=== PATIENT | male | born 1960 | race Caucasian/White ===

== ENCOUNTER 2017-06-28 02:39 | Emergency (ER) | payer BC, OTHER ==
[~2017-06-28] VITALS: Ht 190.5 cm; Wt 81.7 kg
[2017-06-28] MEDS ORDERED: PROSCAR 5MG TABL5 MG PO (02:47)
[2017-06-28] MEDS ORDERED: PRAVACHOL20 MG PO (02:47)
[2017-06-28 03:49] LABS: ABSOLUTE NEUTROPHILS 5.5 thou/uL (1.4-8.2); BASOPHILS 0.2 % (0.0-2.0); EOSINOPHILS 1.1 % (0.0-3.0); HEMATOCRIT 43.8 % (42.0-52.0); HEMOGLOBIN 14.7 gm/dL (14.0-18.0); LYMPHOCYTES 37.5 % (24.0-44.0); MCH 29.6 pg (26.0-34.0); MCHC 33.6 g/dL (28.0-37.0); MCV 88.1 fL (80.0-100.0); MONOCYTES 7.1 % (1.0-8.0); PLATELET COUNT 207 thou/uL (150-400); POLYS 54.1 % (36.0-66.0); RBC 4.97 mil/uL (4.50-6.00); RDW 12.8 % (10.5-14.5); WBC 10.1 thou/uL (4.0-11.0)
[2017-06-28 03:52] LABS: ANION GAP 8 mmol/L (7-16); BUN 28 mg/dL (7-18); CALCIUM 9.5 mg/dL (8.5-10.1); CHLORIDE 104 mmol/L (98-107); CO2 29 mmol/L (21-32); CREATININE 1.2 mg/dL (0.7-1.3); GLUCOSE 159 mg/dL (74-106); POTASSIUM 3.9 mmol/L (3.5-5.1); SODIUM 141 mmol/L (136-145)
[2017-06-28 03:58] LABS: ALBUMIN 3.8 g/dL (3.4-5.0); DIRECT BILIRUBIN < 0.1 mg/dL (<0.1-0.3); LIPASE 99 U/L (73-393); SGOT 27 U/L (15-37); SGPT 33 U/L (30-65); TOTAL BILIRUBIN 0.4 mg/dL (<0.1-1.0); TOTAL PROTEIN 7.4 g/dL (6.4-8.2)
[2017-06-28 06:09] LABS: URINE BILIRUBIN NEGATIVE (Negative); URINE BLOOD TRACE (Negative); URINE CLARITY CLEAR; URINE COLOR YELLOW; URINE GLUCOSE-RANDOM* NEGATIVE (Negative); URINE KETONES TRACE (Negative); URINE LEUKOCYTES-REFLEX NEGATIVE (Negative); URINE NITRITE-REFLEX NEGATIVE (Negative); URINE PROTEIN (DIPSTICK) NEGATIVE (Negative); URINE UROBILINOGEN 0.2 E.U./dl (0.2-1.0)
[2017-06-28] MEDS ORDERED: NORCO 5-325 TA1 EACH PO (06:19)
[2017-06-28] MEDS ORDERED: ZOFRAN ODT4 MG PO (06:19)
[2017-06-28] MEDS ORDERED: FLOMAX0.4 MG PO (06:19)
[2017-06-28 07:33] VITALS: BP 146/84
== END 2017-06-28 07:53 | disposition home or self-care (01) ==
LOC: ER 02:39
PROVIDERS: Emergency Medicine
DX: N20.1 Calculus of ureter (principal)

== ENCOUNTER → 2017-10-09 | Outpatient (CLI) | payer BC, OTHER ==
[~2017-10-09] MED LIST: FLOMAX0.4 MG PO; NORCO 5-325 TA1 EACH PO; PRAVACHOL20 MG PO; PROSCAR 5MG TABL5 MG PO; ZOFRAN ODT4 MG PO
--- NOTE | ~2017-10-09 | 2DMMODE ---
[facility] [address] [place] [address] 2 D/M-MODE ECHOCARDIOGRAM Name: BRENT JETER Room #: REG [facility]#: [id number] Admission: 10/09/17 Attend Phys: Christopher Gonzalez MD Discharge: Date of : 64 Date of Service: 10/09/17 1543 Report #: [id number] THIS REPORT FOR: //name// APPROVED REPORT Study performed: 10/09/2017 15:06:59 EXAM: Comprehensive 2D, Doppler, and color-flow Echocardiogram Patient Location: Out-Patient Room #: Echo lab 2 Status: routine BSA: 2.10 HR: 52 bpm BP: 128/78 mmHg Other Information Study Quality: Good Indications CAD HLP 2D Dimensions RVDd: 35.46 mm LVEF(%): 60.62 (>50%) IVSd: 10.73 (7-11mm) LVOT Diam: 22.53 (18-24mm) LVDd: 46.84 mm PWd: 9.63 (7-11mm) Ascending Ao: 31.19 (22-36mm) LVDs: 31.69 (25-40mm) Aortic Root: 33.68 mm IVC: 17.00 mm Arevalo's LVEF: 60.62 % Volumes Left Atrial Volume (Systole) Single Plane 4CH: 30.00 mL Single Plane 2CH: 40.36 mL LA ESV Index: 19.00 mL/m2 Aortic Valve AoV Peak Asael.: 1.35 m/s AO Peak Gr.: 7.25 mmHg LVOT Max P.94 mmHg LVOT Max V: 1.22 m/s KAREL Vmax: 3.61 cm2 Mitral Valve E/A Ratio: 1.4 MV Decel. Time: 315.14 ms [facility] [employer] [place] [address] 2 D/M-MODE ECHOCARDIOGRAM Name: BRENT JETER Room #: REG [facility].#: [id number] Admission: 10/09/17 Attend Phys: Christopher Gonzalez MD Discharge: Date of : 64 Date of Service: 10/09/17 1543 Report #: [id number] MV E Max Asael.: 0.58 m/s MV A Asael.: 0.41 m/s MV PHT: 91.39 ms IVRT: 83.04 ms Pulmonary Valve PV Peak Asael.: 0.94 m/s PV Peak Gr.: 3.53 mmHg Pulmonary Vein P Vein S: 0.70 m/s P Vein A: 0.33 m/s P Vein D: 0.50 m/s P Vein A Dur.: 92.3 msec P Vein S/D Ratio: 1.40 Tricuspid Valve TR Peak Asael.: 2.30 m/s TR Peak Gr.: 21.13 mmHg PA Pressure: 26.00 mmHg Left Ventricle The left ventricle is normal size. There is normal left ventricular wall thickness. The left ventricular systolic function is normal. The left ventricular ejection fraction is within the normal range. LVEF is 55-60%. The left ventricular diastolic function is normal. Right Ventricle The right ventricle is normal size. The right ventricular systolic function is normal. Atria The left atrium size is normal. The right atrium size is normal. Aortic Valve The aortic valve is normal in structure. No aortic regurgitation is present. There is no aortic valvular stenosis. Mitral Valve The mitral valve is normal in structure. Trace mitral regurgitation. No evidence of mitral valve stenosis. Tricuspid Valve The tricuspid valve is normal in structure. There is trace tricuspid regurgitation. The right atrial pressure is estimated at mmHg. There is no pulmonary hypertension. Pulmonic Valve [facility] [address] [place] [address] 2 D/M-MODE ECHOCARDIOGRAM Name: BRENT JETER Room #: REG [facility]#: [id number] Admission: 10/09/17 Attend Phys: Christopher Gonzalez MD Discharge: Date of : 64 Date of Service: 10/09/17 1543 Report #: [id number] The pulmonary valve is normal in structure. Trace pulmonic regurgitation. Great Vessels The aortic root is normal in size. IVC is normal in size and collapses >50% with inspiration. Pericardium There is no pericardial effusion. <Conclusion> The left ventricle is normal size. There is normal left ventricular wall thickness. The left ventricular systolic function is normal. The left ventricular diastolic function is normal. The right ventricle is normal size. The left atrium size is normal. The aortic valve is normal in structure. Trace mitral regurgitation. There is no pericardial effusion. <ELECTRONICALLY SIGNED> By: Christopher Gonzalez MD 10/09/17 1543 1543 1543 Christopher Gonzalez MD /INF
== END ==
LOC: CV 07:44
DX: I25.10 Atherosclerotic heart disease of native coronary artery without angina pectoris (principal); E78.5 Hyperlipidemia, unspecified

== ENCOUNTER → 2018-10-15 | Outpatient (CLI) | payer BC, OTHER ==
--- NOTE | 2018-10-15 15:56 | EXE ---
[facility] [employer] [place] [address] STRESS ECHOCARDIOGRAM Name: BRENT JETER Room #: REG [facility]#: [id number] ������������� Admission: 10/15/18 ������������� Attend Phys: Christopher Gonzalez MD Discharge: ��� ������������� ��� Date of : 64 Date of Service: 10/15/18 1556 �� Report #: [id number] �������� ��������������������������������������������[id number] THIS REPORT FOR: //name// APPROVED REPORT Study performed: 10/15/2018 14:20:11 Exam: Stress Echocardiogram Indication: CAD Patient Location: Out-Patient Stress Nurse: Karen Ingram RN Status: routine Ht: 6 ft 3 in HR: 66 bpm BP: 130/88 mmHg Medical History Medications: No cardiac medications Allergies: No known drug allergies Cardiac Risk Factors: None Stress Test Details Stress Test: Exercise stress testing was performed using a Jaciel protocol. HR Resting HR: 66 bpm Max Heart Rate (APMHR): 164 bpm Max HR Achieved: 173 bpm Target HR (85% APMHR): 139 bpm % of APMHR: 105 Recovery HR: 87 bpm HR response to stress: Normal HR response to stress BP Resting BP: 130/88 mmHg Max BP: 170/80 mmHg Recovery BP: 142/80 mmHg BP response to stress: Normal blood pressure response to stress. ECG Resting ECG: Sinus Rhythm Stress ECG: Sinus Tachycardia ST Change: Non-ischemic Clinical Reason for Termination: Completed protocol Stress Symptoms: None [facility] [address] [address] STRESS ECHOCARDIOGRAM Name: BRENT JETER Room #: REG CL [facility]#: [id number] ������������� Admission: 10/15/18 ������������� Attend Phys: Christopher Gonzalez MD Discharge: ��� ������������� ��� Date of : 64 Date of Service: 10/15/18 1556 �� Report #: [id number] �������� ��������������������������������������������[id number] Exercise duration: 12 min 41 sec Highest Stage Achieved: Stage 5: 5.0 mph at 18% grade. Exercise capacity: 15.90 METs Pre-Stress Echo The resting Echocardiogram showed normal left ventricular contractility with an estimated Ejection Fraction of about 55-60%. Normal wall motion in all segments on baseline images. Post-Stress Echo The stress Echocardiogram showed normal left ventricular contractility with an estimated Ejection Fraction of about 65-70%. Normal augmentation of wall motion in all segments on post stress images. Clinical Normal augmentation of myocardial wall segments using a 17 segment model. No clinical or ECG evidence for ischemia. Conclusion Clinical Response: Non-ischemic Exercise Capacity: Superior Stress ECG Response: Non-ischemic Stress Echo Images: Non-ischemic The left ventricle is normal in size and wall thickness in both the rest and stress images. Other Information Study Quality: Adequate <Conclusion> The left ventricle is normal in size and wall thickness in both the rest and stress images. ��������������������������������������������� <ELECTRONICALLY SIGNED> ���������������������������������������� By: Christopher Gonzalez MD ��������������������������������������������� 10/15/18 1556 1556 1556 Christopher Gonzalez MD /KEISHA
== END ==
LOC: CV 11:17
DX: I25.10 Atherosclerotic heart disease of native coronary artery without angina pectoris (principal)

== ENCOUNTER → 2019-07-05 | Outpatient (CLI) | payer BC, OTHER | LOC: RAD 10:21 | DX: M47.816 Spondylosis without myelopathy or radiculopathy, lumbar region (principal); M48.061 Spinal stenosis, lumbar region without neurogenic claudication; M25.78 Osteophyte, vertebrae; V89.2XXA Person injured in unspecified motor-vehicle accident, traffic, initial encounter ==